=== PATIENT | male | born 1990 | race African-American/Black ===

== ENCOUNTER 2020-01-23 18:32 | Emergency (ER) | payer SELFPAY ==
[~2020-01-23] VITALS: Ht 182.9 cm; Wt 97.5 kg
[2020-01-23 18:37] VITALS: BP 153/70; Ht 182.9 cm; Wt 97.5 kg
== END 2020-01-23 19:21 | disposition home or self-care (01) ==
LOC: ED 18:32
DX: J02.9 Acute pharyngitis, unspecified (principal)

== ENCOUNTER 2020-01-26 12:46 | Emergency (ER) | payer MEDICAID ==
[~2020-01-26] VITALS: Ht 182.9 cm; Wt 98.9 kg
[2020-01-26 12:52] VITALS: Ht 182.9 cm; Wt 98.9 kg
[2020-01-26 14:45] VITALS: BP 132/87
== END 2020-01-26 14:45 | disposition home or self-care (01) ==
LOC: ED 12:46
DX: J03.90 Acute tonsillitis, unspecified (principal)
CPT/HCPCS: J0696; J1100; J1885; J3490; J7030